=== PATIENT | female | born 1995 | race Caucasian/White ===

== ENCOUNTER 2020-11-27 10:55 | Emergency (ER) | payer OTHER ==
[2020-11-27] MEDS ORDERED: IBU600 MG PO (13:42)
[2020-11-27] MEDS ORDERED: CYCLOBENZAPRINE10 MG PO (13:42)
== END 2020-11-27 13:50 | disposition home or self-care (01) ==
LOC: ER1 10:55
DX: S13.4XXA Sprain of ligaments of cervical spine, initial encounter (principal); S20.214A Contusion of middle front wall of thorax, initial encounter; F17.200 Nicotine dependence, unspecified, uncomplicated; Z88.6 Allergy status to analgesic agent; V49.40XA Driver injured in collision with unspecified motor vehicles in traffic accident, initial encounter; Y92.410 Unspecified street and highway as the place of occurrence of the external cause
CPT/HCPCS: 71045; 72125; 99284